=== PATIENT | female | born 1995 | race African-American/Black ===

== ENCOUNTER 2018-04-20 15:35 | Emergency (ER) | payer OTHER ==
[2018-04-20 15:53] VITALS: BP 107/68
--- NOTE | 2018-04-20 17:32 | UC ---
Abdominal Pain Female HPI - HPI Summary HPI Summary: n/v/d on off of one week--no fevers, chills, travel or antibiotics - History of Current Complaint Chief Complaint: [facility] Stated Complaint: ABD PAIN,NAUSEA,DIARRHEA Time Seen by Provider: 04/20/18 17:20 Hx Obtained From: Patient Hx Last Menstrual Period: 2 months ago ?: No Onset/Duration: Sudden Onset, Lasting Weeks - 1 Timing: Constant Pain Intensity: 0 Pain Scale Used: 0-10 Numeric Location: Diffuse Radiates: Yes Character: Cramping Aggravating Factor(s): Nothing Alleviating Factor(s): Nothing Associated Signs and Symptoms: Positive: Nausea, Vomiting, Diarrhea Allergies/Adverse Reactions: Allergies Allergy/AdvReac Type Severity Reaction Status Date / Time No Known Allergies Allergy Unverified 04/20/18 15:49 Home Medications: Home Medications Escitalopram Oxalate [Lexapro 20 mg] 1 tab PO DAILY 04/20/18 [History Confirmed 04/20/18] PMH/Surg Hx/FS Hx/Imm Hx Psychological History: Anxiety, Depression - Surgical History Surgical History: None - Family History Known Family History: Positive: None - Social History Occupation: Student Lives: With Family Alcohol Use: Occasionally Substance Use Type: Marijuana Smoking Status (MU): Never Smoked Tobacco Review of Systems Constitutional: Negative Skin: Negative Eyes: Negative ENT: Negative Respiratory: Negative Cardiovascular: Negative Gastrointestinal: Vomiting, Diarrhea, Nausea Genitourinary: Negative Motor: Negative Neurovascular: Negative Musculoskeletal: Negative Neurological: Negative Psychological: Negative Is Patient Immunocompromised?: No All Other Systems Reviewed And Are Negative: Yes Physical Exam Triage Information Reviewed: Yes Appearance: Well-Appearing, No Pain Distress, Well-Nourished Vital Signs: Initial Vital Signs Temp 97.7 F 04/20/18 15:45 Pulse 53 04/20/18 15:45 Resp 12 04/20/18 15:45 BP 107/68 04/20/18 15:45 Pulse Ox 100 04/20/18 15:45 Vital Signs Reviewed: Yes Eye Exam: Normal Eyes: Positive: Conjunctiva Clear ENT Exam: Normal ENT: Positive: Normal ENT inspection, Hearing grossly normal. Negative: Muffled voice, Hoarse voice, Dental tenderness Dental Exam: Normal Neck exam: Normal Respiratory Exam: Normal Respiratory: Positive: Chest non-tender, No respiratory distress, No accessory muscle use Cardiovascular Exam: Normal Cardiovascular: Positive: RRR, Pulses Normal, Brisk Capillary Refill Abdominal Exam: Normal Abdomen Description: Positive: Nontender, No Organomegaly, Soft. Negative: CVA Tenderness (R), CVA Tenderness (L) Musculoskeletal Exam: Normal Musculoskeletal: Positive: Strength Intact, ROM Intact, No Edema Neurological Exam: Normal Neurological: Positive: Alert, Muscle Tone Normal Psychological Exam: Normal Psychological: Positive: Normal Response To Family Skin Exam: Normal Abd Pain Female Course/Dx - Course Course Of Treatment: stool kit, vistaril, info to manage diarrhea---follow with pcp prn - Differential Dx/Diagnosis Provider Diagnoses: anxiety, Discharge - Sign-Out/Discharge Documenting (check all that apply): Patient Departure - Discharge Plan Condition: Stable Disposition: HOME Prescriptions: hydrOXYzine pamoate [Vistaril] 25 mg PO QID PRN #20 capsule PRN Reason: Anxiety Patient Education Materials: Gastroenteritis (ED), Generalized Anxiety Disorder (ED), Panic Disorder (ED), Nutrition Tips for Relief of Diarrhea (ED) Referrals: Care [facility] [Outside] [facility] [Outside] - Billing Disposition and Condition Condition: STABLE Disposition: Home
== END 2018-04-20 18:05 | disposition home or self-care (01) ==
LOC: UCEAST 15:35
DX: F41.9 Anxiety disorder, unspecified (principal); R11.2 Nausea with vomiting, unspecified; R19.7 Diarrhea, unspecified; F32.9 Major depressive disorder, single episode, unspecified
CPT/HCPCS: 81003; 84702; 99212; G0463